=== PATIENT | female | born 1940 | race Caucasian/White ===

== ENCOUNTER → 2017-07-29 | Outpatient (CLI) | payer OTHER ==
[~2017-07-29] MED LIST: ACET-1256 PO; ASPEC325 PO; ATOR10TA82 PO; FRRG PO; METO100T44 PO; RXC5 PO; SERT50TA PO; TRAM-10 PO
--- NOTE | 2017-07-29 12:01 | DIAGNOSTIC IMAGING REPORT ---
CERVICAL WITHOUT CONTRAST CLINICAL HISTORY: 77 years-old Female presenting with CERVICALGIA, severe kyphosis, left shoulder pain. TECHNIQUE: Multisequence, multiplanar MR imaging of the cervical spine was performed without the use of intravenous contrast. IV contrast: None. COMPARISON: None. FINDINGS: Localizer images: Unremarkable. Exaggerated thoracic kyphosis. Resultant straightening of normal cervical lordosis. Sclerotic and fatty endplate changes at C5-6, where there is the greatest degree of degenerative change in the cervical spine (Modic type II and III changes). Remaining vertebral bodies demonstrate normal height, alignment, and bone marrow signal intensity. Diffuse intervertebral disc desiccation with small disc osteophyte complexes. Significant intervertebral disc height loss at C5-6 with trace fluid in the disc space. Multilevel degenerative changes further detailed below: C2-3: Left facet arthropathy and uncovertebral hypertrophy results in mild left neural foraminal narrowing. No significant spinal canal narrowing. C3-4: Disc osteophyte complex/uncovertebral hypertrophy and right facet arthropathy result in moderate right neural foraminal narrowing. In combination with ligamentum flavum hypertrophy, circumferential effacement of the thecal sac (series 7 image 7), where no CSF signal intensity is maintained. Slight flattening of the spinal cord suggested. There is subtle increased signal intensity within the spinal cord superior to this site on sagittal STIR though motion degraded axial merge images do not corroborate this finding. C4-5: No significant neural foraminal or spinal canal narrowing. C5-6: Disc osteophyte complex/uncovertebral hypertrophy result in mild right and moderate left neural foraminal narrowing. Effacement of the ventral thecal sac without significant contouring. C6-7: No significant neural foraminal or spinal canal narrowing. C7-T1: No significant neural foraminal or spinal canal narrowing. Increased signal intensity noted within the hussain and upper cervical spine. No significant evidence of atrophy of the spinal cord. No paraspinal muscular edema. No epidural collection. Enlargement of the right lobe of the thyroid. IMPRESSION: 1. Significant spinal canal stenosis most severe at C3-4. Suggestion of subtle increased signal intensity of the upper cervical cord above the level of C3-4. Cord edema is difficult to exclude though not corroborated on all sequences. Correlate clinically to exclude spinal cord impingement. 2. Multilevel neural foraminal narrowing most severe at C3-4 on the right and C5-6 on the left. 3. Trace fluid in the intervertebral disc space at C5-6 without endplate edema. This is likely degenerative in etiology. No convincing evidence of discitis osteomyelitis. 4. Thoracic kyphosis. The report will be called/faxed according to standard departmental protocol. Electronically signed by: Jorje Merrill M.D. 07/29/2017 11:59 AM Dictated Date/Time: 07/29/2017 11:50 AM
== END | disposition home or self-care (01) ==
LOC: C.MRI 10:37
PROVIDERS: ATTEND Physician Assistant
DX: M48.02 Spinal stenosis, cervical region (principal); M40.204 Unspecified kyphosis, thoracic region